=== PATIENT | female | born 1975 | race Asian ===

== ENCOUNTER 2018-10-06 07:36 | Emergency (ER) | payer BC ==
[~2018-10-06] VITALS: Ht 162.6 cm; Wt 87.8 kg
[~2018-10-06 07:36] MED LIST: PREN-17 PO
[2018-10-06 07:37] VITALS: BP 130/58; PULSE 75; RESP 18; Ht 162.6 cm; Wt 87.8 kg
[2018-10-06] MEDS ORDERED: SOD CHLORIDE 0.9% 1,000 ML IV STA (08:18)
[2018-10-06] MEDS ORDERED: FAMOTIDINE 20 MG INJ IV STA (08:18)
[2018-10-06] MEDS ORDERED: LIDOCAINE/MYLANTA 40 ML BTL PO STA (08:18)
[2018-10-06] MEDS ORDERED: BELLADONNA/PHENOBARBITAL TAB PO STA (08:18)
[2018-10-06] MEDS ORDERED: ONDANSETRON 4 MG INJ IV STA (08:18)
--- NOTE | 2018-10-06 09:13 | ERD ---
ER Documentation Chief Complaint Chief Complaint epigastric cramping nausea & vomitting x2 wks, metalatic taste in mouth HPI This is a 42-year-old female that presents to the emergency department complaining of epigastric pain for the past 2 weeks. She indicates that every day she is been experiencing significant nausea with nonbloody nonbilious emesis. She states this will be throughout the day but worse in the morning. She also indicates she has had a metallic taste in her mouth but denies any dental pain. No productive or nonproductive cough. She indicates that the epigastric pain is always worsened after she eats. She states that will last for several hours after eating. She also indicates it is worse when she lies supine after eating. It is a retrosternal burning-like pain. She has no chest pressure. She has no shortness of breath. She indicates that she has a history of very regular cycles. Her last menstrual cycle was 2 months prior to arrival on August 08, 2018. ROS All systems reviewed and are negative except as per history of present illness. Medications Home Meds Active Scripts Vit No.78/Iron/FA (Prenatabs FA Tablet) 1 Each Tablet, 1 EACH PO DAILY, #30 TAB Prov:HUBERT HEARD MD 10/06/18 Allergies Allergies: Coded Allergies: No Known Allergy (Unverified , 10/06/18) PMhx/Soc Medical and Surgical Hx: pt denies Medical Hx History of Surgery: Yes (C/S- via IVF) Anesthesia Reaction: No Hx Alcohol Use: No Hx Substance Use: No Hx Tobacco Use: No Smoking Status: Never smoker Physical Exam Vitals Vital Signs Date Temp Pulse Resp B/P (MAP) Pulse Ox O2 O2 Flow FiO2 Time Delivery Rate 10/06/18 97.9 75 18 130/58 99 07:37 (82) Physical Exam Constitutional:Well-developed. Well-nourished. HEENT:Normocephalic. Atraumatic.Pupils were equal round reactive to light. Moist mucous membranes.No tonsillar exudates or pain with percussion of the teeth. Respiratory: Not using accessory muscles of respiration.Lungs were clear to auscultation bilaterally. No rhonchi. No rales. No wheezing. Cardiovascular: Regular rate regular rhythm.No murmurs. No rubs were appreciated.S1, S2 normal. Distal pulses are palpable 2+ bilaterally. GI: Abdomen was soft. Epigastric tenderness. No tenderness the right upper quadrant with negative Landers sign. Non Distended. No pulsatile abdominal masses or bruits. No rebound. No guarding. Bowel sounds were present and normal. NEURO: Patient was alert, awake, orientated x3.No facial droop. Gait observed and normal with no ataxia.Speech had regular rate and rhythm. No focal neurological deficits. Result Diagram: 10/06/18 0826 10/06/18 0826 Results 24 hrs Laboratory Tests Test 10/06/18 08:26 10/06/18 08:38 10/06/18 09:11 White Blood Count 11.7 10^3/ul Red Blood Count 3.84 10^6/ul Hemoglobin 12.0 g/dl Hematocrit 35.3 % Mean Corpuscular Volume 91.9 fl Mean Corpuscular Hemoglobin 31.3 pg Mean Corpuscular 34.0 g/dl Hemoglobin Concent Red Cell Distribution Width 12.7 % Platelet Count 295 10^3/UL Mean Platelet Volume 10.5 fl Immature Granulocytes % 0.300 % Neutrophils % 74.4 % Lymphocytes % 14.7 % Monocytes % 7.4 % Eosinophils % 2.6 % Basophils % 0.6 % Nucleated Red Blood Cells % 0.0 /100WBC Immature Granulocytes # 0.040 10^3/ul Neutrophils # 8.7 10^3/ul Lymphocytes # 1.7 10^3/ul Monocytes # 0.9 10^3/ul Eosinophils # 0.3 10^3/ul Basophils # 0.1 10^3/ul Nucleated Red Blood Cells # 0.0 10^3/ul Urine Color YELLOW Urine Clarity SLIGHTLY CLOUDY Urine pH 5.0 Urine Specific [place] 1.020 Urine Ketones 2+ mg/dL Urine Nitrite NEGATIVE mg/dL Urine Bilirubin NEGATIVE mg/dL Urine Urobilinogen NEGATIVE mg/dL Urine Leukocyte Esterase NEGATIVE Rhianna/ul Urine Microscopic RBC 3 /HPF Urine Microscopic WBC 3 /HPF Urine Squamous Epithelial Cells FEW /HPF Urine Bacteria FEW /HPF Urine Mucus FEW /HPF Urine Hemoglobin NEGATIVE mg/dL Urine Glucose NEGATIVE mg/dL Urine Total Protein NEGATIVE mg/dl Sodium Level 136 mmol/L Potassium Level 3.5 mmol/L Chloride Level 102 mmol/L Carbon Dioxide Level 25 mmol/L Anion Gap 9 Blood Urea Nitrogen 8 mg/dl Creatinine 0.45 mg/dl Est Glomerular Filtrat > 60 mL/min Rate mL/min Glucose Level 102 mg/dl Calcium Level 9.5 mg/dl Total Bilirubin 0.2 mg/dl Direct Bilirubin 0.00 mg/dl Indirect Bilirubin 0.2 mg/dl Aspartate Amino 19 IU/L Transf (AST/SGOT) Alanine 23 IU/L Aminotransferase (ALT/SGPT) Alkaline Phosphatase 49 IU/L Total Protein 7.6 g/dl Albumin 4.5 g/dl Globulin 3.10 g/dl Albumin/Globulin Ratio 1.45 Amylase Level 79 U/L Lipase 66 U/L Serum HCG, Qualitative POSITIVE POC Beta HCG, Qualitative POSITIVE Beta HCG, Quantitative 87506.0 mIU/ml Current Medications Medications Dose Sig/Osvaldo Start Time Status Last (Trade) Ordered Route PRN Stop Time Admin Dose Reason Admin Sodium 1,000 ml @ Q1H STAT 10/06/18 DC 10/06/18 Chloride 1,000 mls/hr IV 08:18 10/06/18 08:40 09:17 Ondansetron 4 mg ONCE STAT 10/06/18 DC 10/06/18 HCl (Zofran IV 08:18 10/06/18 08:40 Inj) 08:20 Famotidine 20 mg ONCE STAT 10/06/18 DC 10/06/18 (Pepcid Iv) IV 08:18 10/06/18 08:40 08:20 40 ml ONCE STAT 10/06/18 DC 10/06/18 Miscellaneous PO 08:18 10/06/18 08:40 Medication 09:04 (Gi Cocktail (2)) Belladonna/ 2 tab ONCE STAT 10/06/18 DC Phenobarbital PO 08:18 10/06/18 () 09:04 Procedures/MDM The patient presented to the emergency department with epigastric pain. My differential diagnosis included but was not limited to abdominal aortic aneurysm, choledocholithiasis, gallstone ileus, renal colic, pyelonephritis, pancreatitis, peptic ulcer disease, atypical myocardical infarction, mesenteric ischemia, GERD, pulmonary infarction. The patient was placed on a piercing artist, continuous pulse oximetry and IV access was established by nursing staff. The patient was given IV fluids. She is also given Zofran and a GI cocktail. She was given IV Pepcid. The patient's serum qualitative hCG was positive. I informed the patient at this time that I did feel her symptoms could be a result of peptic ulcer disease in addition to hyperemesis gravidarum. The patient did not know that she was and therefore this was the initial diagnosis. I obtained an ultrasound of the abdomen at this time in order to rule out for an ectopic . Urinalysis showed no evidence of urinary tract infection. There was no elevation of LFTs to suggest ductal obstruction, cholangitis, cholecystiitis or hepatitis. Given that the urinalysis did not show bilirubinuria, my suspicion for common duct obstruction or hepatitis was low. The patient's ultrasound indicated that heart tones were present 142 bpm. No ectopic . Departure Diagnosis: Primary Impression: Hyperemesis gravidarum Condition: HUBERT Cain MD Oct 06, 2018 09:13
== END 2018-10-06 10:56 | disposition home or self-care (01) ==
LOC: FTE 07:36
DX: O21.0 Mild hyperemesis gravidarum (principal); Z3A.01 Less than 8 weeks gestation of pregnancy
CPT/HCPCS: 76801; 80053; 81001; 81025; 82150; 83690; 84702; 84703; 85025; 86900; 86901; 87086; 96361; 96374; 96375; 99285; J2405; J7030; 81003

== ENCOUNTER 2018-10-14 07:41 | Emergency (ER) | payer BC ==
[~2018-10-14] VITALS: Ht 162.6 cm; Wt 86.7 kg
[2018-10-14 07:45] VITALS: BP 129/73; PULSE 74; RESP 18; Ht 162.6 cm; Wt 86.7 kg
--- NOTE | 2018-10-14 13:28 | ERD ---
ER Documentation Chief Complaint Chief Complaint vaginal bleeding today, 8 weeks , left pelvic pain x 2 days HPI 42-year-old female presents with vaginal bleeding started today. Patient is about 8 weeks with LNMP of August 18. G2, . Patient had some dark blood coming from the vaginal region earlier today. She has some generalized lower pelvic cramping. Has not been seen by OB had an ultrasound yet. Denies medical problems. NKDA. Surgical history . Social history denies ROS All systems reviewed and are negative except as per history of present illness. Medications Home Meds Active Scripts Vit No.78/Iron/FA (Prenatabs FA Tablet) 1 Each Tablet, 1 EACH PO DAILY, #30 TAB Prov:HUBERT HEARD MD 10/06/18 Allergies Allergies: Coded Allergies: No Known Allergy (Unverified , 10/14/18) PMhx/Soc History of Surgery: Yes (C/S- via IVF) Anesthesia Reaction: No Hx Alcohol Use: No Hx Substance Use: No Hx Tobacco Use: No Smoking Status: Never smoker FmHx Family History: No diabetes, No coronary disease, No other Physical Exam Vitals Vital Signs Date Temp Pulse Resp B/P (MAP) Pulse Ox O2 O2 Flow FiO2 Time Delivery Rate 10/14/18 98.2 74 18 129/73 100 07:45 (91) Physical Exam GENERAL: The patient is well-appearing, well-nourished, in no acute distress HEENT: Atraumatic. Conjunctivae are pink. Pupils equal, round, and reactive to light. There is no scleral icterus. Tympanic membranes clear bilaterally. Oropharynx clear. CHEST: Clear to auscultation bilaterally. There are no rales, wheezes or rhonchi. HEART: Regular rate and rhythm. No murmurs, clicks, rubs or gallops. ABDOMEN:Soft, nontender and nondistended. Good bowel sounds. No rebound or guarding. No gross peritonitis. No gross organomegaly or masses. BACK: No midline or flank tenderness. Result Diagram: 10/14/18 0807 Results 24 hrs Laboratory Tests Test 10/14/18 08:07 White Blood Count 13.1 10^3/ul Red Blood Count 3.91 10^6/ul Hemoglobin 12.2 g/dl Hematocrit 36.1 % Mean Corpuscular Volume 92.3 fl Mean Corpuscular Hemoglobin 31.2 pg Mean Corpuscular Hemoglobin Concent 33.8 g/dl Red Cell Distribution Width 12.6 % Platelet Count 337 10^3/UL Mean Platelet Volume 10.4 fl Immature Granulocytes % 0.500 % Neutrophils % 70.8 % Lymphocytes % 17.8 % Monocytes % 8.2 % Eosinophils % 2.2 % Basophils % 0.5 % Nucleated Red Blood Cells % 0.0 /100WBC Immature Granulocytes # 0.060 10^3/ul Neutrophils # 9.3 10^3/ul Lymphocytes # 2.3 10^3/ul Monocytes # 1.1 10^3/ul Eosinophils # 0.3 10^3/ul Basophils # 0.1 10^3/ul Nucleated Red Blood Cells # 0.0 10^3/ul Urine Color YELLOW Urine Clarity SLIGHTLY CLOUDY Urine pH 5.0 Urine Specific [place] 1.011 Urine Ketones TRACE mg/dL Urine Nitrite NEGATIVE mg/dL Urine Bilirubin NEGATIVE mg/dL Urine Urobilinogen NEGATIVE mg/dL Urine Leukocyte Esterase NEGATIVE Rhianna/ul Urine Microscopic RBC 3 /HPF Urine Microscopic WBC 2 /HPF Urine Squamous Epithelial Cells FEW /HPF Urine Bacteria FEW /HPF Urine Mucus FEW /HPF Urine Hemoglobin 2+ mg/dL Urine Glucose NEGATIVE mg/dL Urine Total Protein NEGATIVE mg/dl Beta HCG, Quantitative 618979.0 mIU/ml Procedures/MDM DIAGNOSTIC IMAGING REPORT Patient: LIU LEONE V : 1975 Age: 42 Sex: F MR #: [id number] DOS: 10/14/18 [facility] Ordering MD: ANDRIY MORAN PA-C Location: [facility] Room/Bed: PROCEDURE: US OB. CLINICAL INDICATION: Vaginal bleeding TECHNIQUE: Transabdominal views of the pelvis are available for review. COMPARISON: No prior studies are available for comparison. FINDINGS: There is a single intrauterine gestation with the crown-rump length measuring 1.8 cm and the gestational sac measures 3.8 cm, corresponding to a gestational age of 8 weeks and 5 days. The heart rate is noted at 176 bpm. The ovaries are normal in size and echogenicity. Normal Doppler flow is identified in both ovaries. The right ovary measures 3.0 x 2.2 x 2.1 cm. The left ovary measures 2.3 x 1.8 x 1.4 cm. There is no free fluid. RPTAT: AA IMPRESSION: Single live intrauterine with an estimated gestational age of 8 weeks and 5 days, based on ultrasound measurements. BINTA based on ultrasound measurements is 05/21/19. MDM: 42-year-old female presenting with pelvic pain. Patient had some vaginal spotting however and urine appears to be within normal limits. Blood work is stable. Patient is elevated risk for miscarriage however at this time appears to be stable. I have low suspicion for acute abdominal emergency. Patient is Rh+ and does not require RhoGam. Patient is hemodynamically stable. Urinalysis negative. I have low suspicion for ectopic . patient is discharged with strict ER precautions and told to follow- up with primary care within 1 to 2 days for close evaluation. Patient is told symptoms change or worsen to return immediately to the ER. All questions answered at discharge Departure Diagnosis: Primary Impression: Vaginal bleeding Condition: Stable Patient Instructions: Bleeding During Early Referrals: [place] [address] [facility] [address] [place] [address] OFFICE FAX , [place] [place], [place] [id number] [facility] [address] [place] [address] [address] LUQUE, [facility] [address] [facility] [facility] [address] [address] [facility] [address] [place] [address] [facility] [place] [address] [place], [place] [id number] [facility] [id number] - [place], [facility] [address] [address] GARCIA, [place] [address], [facility] [phone] [address] [address] [place] [address] Additional Instructions: FOLLOW UP WITH YOUR PRIMARY CARE PHYSICIAN TOMORROW.Return to this facility if you are not improving as expected. RAHEEM MORAN PA-C Oct 14, 2018 13:28
== END 2018-10-14 10:43 | disposition home or self-care (01) ==
LOC: E/R 07:41 → FTE 10:43
DX: O20.9 Hemorrhage in early pregnancy, unspecified (principal); R10.2 Pelvic and perineal pain; Z3A.08 8 weeks gestation of pregnancy
CPT/HCPCS: 36415; 76801; 81001; 84702; 85025; 86900; 86901